=== PATIENT | female | born 2000 | race Caucasian/White ===

== ENCOUNTER 2021-03-01 16:12 | Emergency (ER) | payer MEDICAID, SELFPAY ==
[2021-03-01 16:29] VITALS: BP 111/64; PULSE 91; RESP 18; TEMP 37; O2SAT 100
--- NOTE | 2021-03-01 16:47 | ED.FEMALEGU ---
HPI - Female Genitourinary General Chief complaint: Urogenital-Female Stated complaint: Possible UTI Time Seen by Provider: 03/01/21 16:55 Source: patient and RN notes reviewed Mode of arrival: ambulatory Limitations: no limitations History of Present Illness HPI Narrative: 20-year-old female presents with concern for possible urinary tract infection. Reports 3-day history of dysuria, hematuria. She denies back pain, abdominal pain, nausea, vomiting. Reports fever and chills this morning. She denies intervention. MD elicited complaint: UTI Related Data Allergies Allergy/AdvReac Type Severity Reaction Status Date / Time amoxicillin Allergy Rash Verified 03/01/21 16:55 Penicillins Allergy Rash Verified 03/01/21 16:55 Review of Systems Review of Systems: Narrative: CONSTITUTIONAL: Denies malaise, sweats. Reports chills and fever. CARDIOVASCULAR: Denies chest pain, palpitations, or edema. RESPIRATORY: Denies cough or dyspnea. GASTROINTESTINAL: Denies abdominal pain, nausea, vomiting, diarrhea GENITOURINARY: Reports dysuria and hematuria. Denies frequency, urgency SKIN: Denies rash or itching. MUSCULOSKELETAL: Denies back pain or myalgia. All systems reviewed & are unremarkable except as noted in HPI and below PMFSH Comments At time of signature, agree with nursing past medical, surgical, social and family history. There is no relevant family history pertinent to the presenting complaint Exam Narrative: Exam Narrative: GENERAL: Well-appearing, well-nourished, and in no acute distress. HEAD: Normocephalic. EYES: PERRLA, conjunctivae clear. NECK: Supple. No lymphadenopathy CHEST: Clear to auscultation. No respiratory distress. HEART: Regular rate and rhythm. ABDOMEN: Soft, nontender upon palpation, nondistended, normal active bowel sounds, no palpable or pulsatile masses, no guarding. No CVA tenderness SKIN: Warm, dry, no rash. NEURO: Alert and oriented x3. PSYCH: Normal mood and affect Course Course Emergency Course: Patient is aware of diagnosis, understands and agrees to treatment plan. Anticipatory guidance given. Patient agrees to follow-up as directed and is aware of reasons to seek care at the emergency department. Portions of this record may have been created with voice recognition software Vital Signs Vital signs: Vital Signs Temperature 98.6 F 03/01/21 16:29 Pulse Rate 91 03/01/21 16:29 Respiratory Rate 18 03/01/21 16:29 Blood Pressure 111/64 03/01/21 16:29 Pulse Oximetry 100 03/01/21 16:29 Temperature 98.6 F 03/01/21 16:29 Pulse Rate 91 03/01/21 16:29 Respiratory Rate 18 03/01/21 16:29 Blood Pressure 111/64 03/01/21 16:29 Pulse Oximetry 100 03/01/21 16:29 Reviewed. MDM - Female Genitourinary MDM Narrative Medical decision making narrative: Exam findings and UA show no acute concerns or changes; patient is non-toxic appearing and is in no distress. Patient is appropriate for outpatient treatment and follow-up. Differential Diagnosis Differential diagnosis: Likely urinary tract infection, vaginitis and cystitis Lab Data Labs: Urine Glucose Negative Reference Range: Negative Urine Bilirubin Negative Reference Range: Negative Urine Ketone Negative Reference Range: Negative Urine Specific [place] 1.025 Reference Range:1.001-1.035 Urine Blood 3+ Reference Range: Negative * * Urine pH 7.0 Reference Range: 5.0-9.0 Urine Protein 2+ Reference Rang
== END 2021-03-01 17:16 | disposition home or self-care (01) ==
PROVIDERS: Emergency Provider Nurse Practitioner
DX: N39.0 Urinary tract infection, site not specified (principal)
CPT/HCPCS: 81003; 81025; 87077; 87086; 87088; 87186; 99213; G0463

== ENCOUNTER 2021-03-30 08:21 | Emergency (ER) | payer MEDICAID, SELFPAY ==
[2021-03-30 08:30] VITALS: BP 98/60; PULSE 118; RESP 16; TEMP 37; O2SAT 100
--- NOTE | 2021-03-30 08:42 | ED.SKABFB ---
HPI - Skin/Abscess/Foreign Bdy General Chief complaint: Skin/Abscess/Foreign Body Stated complaint: Possible Spider on the right Leg Time Seen by Provider: 03/30/21 08:42 Source: patient Mode of arrival: ambulatory History of Present Illness HPI narrative: PAST 4 DAYS HAS HAD AN INSECT BITE,SPIDER BITE TO LEG. NO DRAINAGE NO STREAKING PATIENT HAS NOT USED ANY OTC TREATMENT TO AREA. MD complaint: abscess/boil Tetanus up to date: yes Location: RLE Severity scale (1-10): 1 Relieving factors: none Exacerbating factors: none Context: none Associated symptoms: denies other symptoms Related Data Home Medications Medication Instructions Recorded Confirmed Bcp 03/30/21 Allergies Allergy/AdvReac Type Severity Reaction Status Date / Time amoxicillin Allergy Rash Verified 03/30/21 08:33 Penicillins Allergy Rash Verified 03/30/21 08:33 Review of Systems Review of Systems: Narrative: CONSTITUTIONAL: Denies fever, chills, or sweats. EYES: Denies visual changes, redness, or discharge. ENT: Denies rhinorrhea, congestion, sore throat, or otalgia. CARDIOVASCULAR: Denies chest pain, palpitations, or edema. RESPIRATORY: Denies cough or dyspnea. GASTROINTESTINAL: Denies abdominal pain, nausea, vomiting, or diarrhea. GENITOURINARY: Denies dysuria or hematuria. SKIN: Denies rash or itching. MUSCULOSKELETAL: Denies back pain, joint pain, or myalgia. NEUROLOGIC: Denies headache, numbness, or weakness. PSYCHIATRIC: Denies anxiety or depression. PMFSH Comments At time of signature, agree with nursing past medical, surgical, social and family history. There is no relevant family history pertinent to the presenting complaint Exam Narrative: Exam Narrative: GENERAL: Well-appearing, well-nourished, and in no acute distress. HEAD: Normocephalic, atraumatic. EYES: PERRLA and EOMI. ENT: Nares clear, no rhinorrhea or epistaxis. Mucous membranes moist. NECK: Supple. CHEST: Clear to auscultation. No respiratory distress. HEART: Regular rate and rhythm. No murmur heard. Normal peripheral pulses. ABDOMEN: Soft, nontender, nondistended, normal active bowel sounds. EXTREMITIES: Normal range of motion. No edema. SKIN: Warm, dry, no rash.2CM BY 1CM AREA OF REDNESS , WARMTH AND TENDERNESS TO BACK OF RIGHT THIGH NO DRAINAGE NO INDURATION NO FLUCTUANCE NO STREAKING NO INDICATION FOR I&D NEURO: No focal deficits. Alert and oriented x3. Organ Coma Scale Eye Opening: Spontaneous 4 Evonne Coma Scale Motor: Obeys Commands 6 Organ Coma Scale Verbal: Oriented 5 Evonne Coma Scale Total 15 MDM - Skin/Abscess/Foreign Bdy Differential Diagnosis Differential diagnosis: Likely abscess of skin or subcutaneous tissue, viral exanthem, dermatophytosis, urticaria, herpes zoster, allergic reaction to drug, cellulitis, eczema, insect bites, impetigo and contact dermatitis Critical Care Time Critical Care Time Critical Care Time: No Discharge Plan Discharge Clinical Impression: Abscess of skin or subcutaneous tissue Patient Disposition: Home, Self-Care Condition: Stable Instructions: Antibiotic Form, Abscess (ED) Additional Instructions: An abscess (sometimes called a boil ) occurs when bacteria get trapped under the skin and begin to grow. Pus forms inside the abscess as the body responds to the bacteria. An abscess can occur with an insect bite, ingrown hair, blocked oil gland, pimple, cyst, or puncture wound. In the early stages, redness and tenderness are the only symptoms. Sometimes, this stage can be treated with antibiotics alone. If the abscess does not respond to antibiotic treatment, it will need to be drained with a small cut, under local anesthesia. Home care The following will help you care for your abscess at home: ?Soak the wound in hot water or apply hot packs (small towel soaked in hot water) to the area for 20 minutes at a time. Do this three to four times a day. ?Apply antibiotic cream or ointment onto the skin 3-4
[2021-03-30 09:19] VITALS: BP 98/60; PULSE 118; RESP 16; TEMP 37; O2SAT 100
== END 2021-03-30 08:52 | disposition home or self-care (01) ==
PROVIDERS: Emergency Provider Nurse Practitioner Family
DX: L02.415 Cutaneous abscess of right lower limb (principal)
CPT/HCPCS: 99213; G0463